=== PATIENT | female | born 1975 | race Caucasian/White ===

== ENCOUNTER 2017-05-30 15:39 | Emergency (ER) | payer OTHER ==
[~2017-05-30] VITALS: Ht 160 cm; Wt 88.5 kg
[~2017-05-30 15:39] MED LIST: ALIS150T; Acular3 ML LEFTEYE; Benadryl 50 mg50 MG PO; DIAZ10 PO; HCTZ; LABE100; LEVSOD125; MORP15ER PO; Prinivil10 MG PO
[2017-05-30 16:20] LABS: Calcium, Ionized (POC) 1.21 mmol/L (1.10-1.46); Chloride (POC) 103 mmol/L (98-108); Creatinine (POC) 0.7 mg/dL (0.6-1.0); Glucose (ISTAT POC) 110 mg/dL (70-99); Hemoglobin (POC) 13.9 g/dL (12.0-16.0); Potassium (POC) 3.8 mmol/L (3.5-5.5); Sodium (POC) 141 mmol/L (135-148); Total CO2 (POC) 27 mmol/L (21-32)
[2017-05-30] MEDS ORDERED: CYCL10 PO (16:56)
== END 2017-05-30 17:15 | disposition home or self-care (01) ==
LOC: ER 15:39
PROVIDERS: Psychiatry & Neurology Psychiatry
DX: R07.81 Pleurodynia (principal); R10.12 Left upper quadrant pain; Z88.0 Allergy status to penicillin; Z88.8 Allergy status to other drugs, medicaments and biological substances; Z88.2 Allergy status to sulfonamides; Z88.1 Allergy status to other antibiotic agents; Z79.899 Other long term (current) drug therapy; Z79.891 Long term (current) use of opiate analgesic; I10 Essential (primary) hypertension; V43.52XA Car driver injured in collision with other type car in traffic accident, initial encounter; E03.9 Hypothyroidism, unspecified
CPT/HCPCS: 36415; 71046; 74177; 80047; 85014; 99284; J7030; Q9967

== ENCOUNTER 2019-10-04 12:54 | Emergency (ER) | payer OTHER ==
[~2019-10-04] VITALS: Ht 160 cm; Wt 86.2 kg
[~2019-10-04 12:54] MED LIST changes: +CYCL10 PO; +EUTHYROX125 MCG PO; -LEVSOD125
[2019-10-04] MEDS ORDERED: OXYC10ER PO (13:13)
[2019-10-04 13:24] LABS: BASOPHILS ABSOLUTE AUTO 0.04 K/mm3 (0.00-0.23); BASOPHILS PERCENT AUTO 0 % (0-2); EOSINOPHILS ABSOLUTE AUTO 0.13 K/mm3 (0.00-0.68); EOSINOPHILS PERCENT AUTO 1 % (0-6); Hematocrit 43.8 % (33.0-51.0); Hemoglobin 14.7 g/dL (11.5-16.0); IMMATURE GRAN ABSOLUTE AUTO 0.03 K/mm3 (0.00-0.10); IMMATURE GRAN PERCENT AUTO 0 % (0-1); LYMPHOCYTES ABSOLUTE AUTO 1.26 K/mm3 (0.84-5.20); LYMPHOCYTES PERCENT AUTO 14 % (21-46); MONOCYTES ABSOLUTE AUTO 0.62 K/mm3 (0.16-1.47); MONOCYTES PERCENT AUTO 7 % (4-13); Mean Corpuscular HGB 27.7 pg (26.0-34.0); Mean Corpuscular HGB Conc 33.6 g/dL (31.5-36.5); Mean Corpuscular Volume 83 fL (80-100); Mean Platelet Volume 10.4 fL (9.1-12.4); NEUTROPHILS ABSOLUTE AUTO 7.07 K/mm3 (1.96-9.15); NEUTROPHILS PERCENT AUTO 77 % (41-73); Platelet Count 335 K/mm3 (150-400); RDW Coefficient Variation 12.7 % (11.7-14.2); RDW Standard Deviation 38.1 fL (35.1-46.3); White Blood Cell Count 9.15 K/mm3 (4.00-11.30)
[2019-10-04 13:47] LABS: Albumin, Blood 4.3 g/dL (3.4-5.0); Albumin/Globulin Ratio 1.1 (0.8-1.8); Bilirubin, Total 0.8 mg/dL (0.1-1.0); Bun/Creatinine Ratio 21.7 (12.0-20.0); Calcium, Blood 9.1 mg/dL (8.5-10.1); Creatinine, Blood 1.06 mg/dL (0.40-1.00); Globulin, Blood 3.9 g/dL (2.2-4.0); Potassium, Blood 3.3 mmol/L (3.5-5.5); Total Protein, Blood 8.2 g/dL (6.4-8.2); Troponin I 0.03 ng/mL (0.000-0.040)
[2019-10-04 13:48] LABS: Base Excess Venous 2.6 mmol/L; Bicarbonate Venous 27.4 mmol/L (24.0-30.0); PCO2 Venous 28.1 mmHg (38-42); PO2 Venous 49.7 mmHg (38-42); pH Blood Venous 7.55 (7.34-7.37)
[2019-10-04 16:34] LABS: U Amphetamine Screen Not Detected; U Barbituate Screen Not Detected; U Benzodiazapine Screen Not Detected; U Buprenorphine Screen Not Detected; U Cannabinoids Screen Not Detected; U Cocaine Screen Not Detected; U Methadone Screen Not Detected; U Methamphetamine Screen DETECTED; U Opiates Screen DETECTED; U Oxycodone Screen DETECTED; U Phencyclidine Screen Not Detected; U Propoxyphene Screen Not Detected
[2019-10-04] MEDS ORDERED: Hydrochlorothia25 MG PO (17:53)
[2019-10-04] MEDS ORDERED: Vistaril25 MG PO (17:53)
[2019-10-08] MEDS ORDERED: PERCOCET 10-321 EAC1 PO (12:12)
[2019-10-08] MEDS ORDERED: TYLENOL SINUS (19:32)
[2019-10-13] MEDS ORDERED: ACET325 PO (10:19)
[2019-10-13] MEDS ORDERED: AMLO5 PO (10:22)
[2019-10-13] MEDS ORDERED: ASPI81CH PO (10:23)
[2019-10-13] MEDS ORDERED: CARV25 (10:24)
[2019-10-13] MEDS ORDERED: CLON.1 (10:33)
[2019-10-13] MEDS ORDERED: FURO20 PO (10:33)
[2019-10-13] MEDS ORDERED: LOSA50 PO (10:35)
== END 2019-10-04 23:39 | disposition home or self-care (01) ==
LOC: ER 12:54
PROVIDERS: Emergency Medicine
DX: R06.00 Dyspnea, unspecified (principal); I10 Essential (primary) hypertension; R79.89 Other specified abnormal findings of blood chemistry; Z88.0 Allergy status to penicillin; Z88.2 Allergy status to sulfonamides; Z88.1 Allergy status to other antibiotic agents; Z79.899 Other long term (current) drug therapy; J45.909 Unspecified asthma, uncomplicated; E03.9 Hypothyroidism, unspecified
CPT/HCPCS: 36415; 71045; 71260; 80053; 82803; 83880; 84484; 85025; 93005; 93010; 96374; 96375; 96376; 99285-25; J0360; J1940; J2060; Q9967

== ENCOUNTER → 2019-11-21 | Outpatient (CLI) | payer OTHER ==
[~2019-11-21] MED LIST changes: +ACET325 PO; +AMLO5 PO; +ASPI81CH PO; +CARV25; +CLON.1; +FURO20 PO; +Hydrochlorothia25 MG PO; +LOSA50 PO; +OXYC10ER PO; +PERCOCET 10-321 EAC1 PO; +TYLENOL SINUS; +Vistaril25 MG PO
[2019-11-22 08:08] LABS: COMPLEMENT C3, SERUM 141 mg/dL (82-167); COMPLEMENT C4, SERUM 22 mg/dL (14-44)
[2019-11-23 15:09] LABS: RNP ANTIBODIES 0.4 AI (0.0-0.9)
[2019-11-25 07:09] LABS: DRVVT 70.7 sec (0.0-47.0); DRVVT CONFIRM 1.8 ratio (0.8-1.2); HEXAGONAL PHASE PHOSPHOLIPID 35 sec (0-11); LUPUS REFLEX INTERPRETATION Comment: (.); PT 10.2 sec (9.6-11.5); PT 1:1NP 10.3 sec (9.6-11.5); PTT-LA 67.1 sec (0.0-51.9); PTT-LA MIX 65.9 sec (0.0-48.9); THROMBIN TIME 17.2 sec (0.0-23.0)
== END | disposition home or self-care (01) ==
LOC: LAB 10:30 → LAB SHORT 10:30
PROVIDERS: Student in an Organized Health Care Education/Training Program
DX: M32.9 Systemic lupus erythematosus, unspecified (principal)
CPT/HCPCS: 36415; 85610; 85611; 85613; 85651; 85670; 85732; 86140; 86146; 86147; 86160; 86162; 86225; 86235; 86762

== ENCOUNTER 2020-03-28 06:13 | Day surgery (SDC) | payer OTHER ==
[~2020-03-28] VITALS: Ht 160 cm; Wt 102.7 kg
[~2020-03-28 06:13] MED LIST changes: +NARCAN4 M1
--- NOTE | 2020-03-28 08:04 | NUR ---
03/28/20 0804 Esteban Moreno MARGAUX AREA & THIGHS PREPPED BY KNM WITH BETADINE GEL. ABDOMINAL AREA PREPPED BY TLG WITH DURAPREP. BUPIVACAINE 0.5% 30MLS MIXED WITH 0.15MLS EPI TO MAKE A CONCENTRATION OF BUPIVACAINE 0.5% 1:200,[address] BUSCH PER ORDER.
--- NOTE | 2020-03-28 10:01 | NUR ---
03/28/20 1001 Betty Roberts PT MEDICATED FOR PAIN PER ORDERS. PT STATES PAIN IS TOLERABLE AT THIS TIME. AFTER REVIEWING DC INSTRUCTIONS, ABDOMINAL DRESSING EXHIBITED APPRIXIMATELY 3X2 INCH RED BLOOD THROUGH PTS GOWN. DR BUSCH AWARE AND PRESSURE DRESSING APPLIED PER INSTRUCTIONS. NO FURTHER OOZING. OK TO DC PER DR BUSCH.
== END 2020-03-28 10:53 | disposition home or self-care (01) ==
LOC: ORSCSDS 06:13
PROVIDERS: Obstetrics & Gynecology
PROC: 0UJD4ZZ Inspection of Uterus and Cervix, Percutaneous Endoscopic Approach (ICD-10-PCS; principal; 2020-03-28 07:30)
DX: N83.209 Unspecified ovarian cyst, unspecified side (principal); K66.0 Peritoneal adhesions (postprocedural) (postinfection); E03.9 Hypothyroidism, unspecified; I10 Essential (primary) hypertension; J45.909 Unspecified asthma, uncomplicated; E66.01 Morbid (severe) obesity due to excess calories; Z68.41 Body mass index [BMI] 40.0-44.9, adult; Z79.899 Other long term (current) drug therapy
CPT/HCPCS: A9270; J0171; J1100; J1885; J2370; J2405; J2704; J2765; J3010; J7120

== ENCOUNTER → 2020-04-11 | Outpatient (CLI) | payer OTHER ==
[~2020-04-11] MED LIST changes: +Aspir 8181 MG PO; +CALC.25 PO; +ERGO400 PO; +HYDR10 PO; +LASIX20 M2 PO; +LEVSOD100 PO; +LEVSOD112; +POTA8 PO
== END | disposition home or self-care (01) ==
LOC: LAB SHORT 16:16
DX: T81.49XA Infection following a procedure, other surgical site, initial encounter (principal)
CPT/HCPCS: 87070; 87077; 87147; 87186; 87205

== ENCOUNTER 2020-09-15 06:34 | Day surgery (SDC) | payer OTHER ==
[~2020-09-15] VITALS: Ht 157.5 cm; Wt 150.0 kg
[~2020-09-15 06:34] MED LIST changes: -LEVSOD112
[2020-09-15] MEDS ORDERED: LEVSOD112 (07:03)
--- NOTE | 2020-09-15 07:15 | NUR ---
09/15/20 0715 CORAL LANDAVERDE ONE ATTEMPT IN RH VALVE SECOND SUCCESSFUL IN RAC PT TOW
--- NOTE | 2020-09-15 08:44 | NUR ---
09/15/20 0844 Marquita Issa (Tarah POOR PREP; UNABLE TO REACH CECUM AFTER 40 MINS, REACHED APPROX TRANSVERSE COLON PRIOR TO DESCENT.
== END 2020-09-15 09:14 | disposition home or self-care (01) ==
LOC: ORSCSDS 06:34
PROVIDERS: Surgery
PROC: 0DJD8ZZ Inspection of Lower Intestinal Tract, Via Natural or Artificial Opening Endoscopic (ICD-10-PCS; principal; 2020-09-15 08:00)
DX: R19.4 Change in bowel habit (principal); R10.30 Lower abdominal pain, unspecified; E03.9 Hypothyroidism, unspecified; I12.9 Hypertensive chronic kidney disease with stage 1 through stage 4 chronic kidney disease, or unspecified chronic kidney disease; N18.30 Chronic kidney disease, stage 3 unspecified; Z79.899 Other long term (current) drug therapy
CPT/HCPCS: J0461; J2405; J2704; J7120

== ENCOUNTER 2021-01-09 07:38 | Day surgery (SDC) | payer OTHER ==
[~2021-01-09] VITALS: Ht 157.5 cm; Wt 104.7 kg
[~2021-01-09 07:38] MED LIST changes: +Catapres-Tts 11 EACH; +LEVSOD112
--- NOTE | 2021-01-09 10:40 | NUR ---
01/09/21 [email or web address] Tabitha Dupree PATIENT VOIDED AT ~ 0913.
--- NOTE | 2021-01-09 12:50 | NUR ---
01/09/21 1250 SHENA MASTERS PLACED ON 10 L O2 NON-REBREATHER IN ADMIT PACU. TRIAL 5L O2 NOW
--- NOTE | 2021-01-09 13:46 | NUR ---
01/09/21 1346 SHENA MASTERS PAIN 08/08
== END 2021-01-09 14:10 | disposition home or self-care (01) ==
LOC: ORSCSDS 07:38
PROVIDERS: Otolaryngology
PROC: 0GBJ0ZZ Excision of Thyroid Gland Isthmus, Open Approach (ICD-10-PCS; principal; 2021-01-09 09:00)
PROC: 0GTK0ZZ Resection of Thyroid Gland, Open Approach (ICD-10-PCS; principal; 2021-01-09 09:00)
DX: E06.3 Autoimmune thyroiditis (principal); E04.2 Nontoxic multinodular goiter; R13.14 Dysphagia, pharyngoesophageal phase; I10 Essential (primary) hypertension; I50.9 Heart failure, unspecified; J45.909 Unspecified asthma, uncomplicated; E66.01 Morbid (severe) obesity due to excess calories; Z68.41 Body mass index [BMI] 40.0-44.9, adult; Z79.899 Other long term (current) drug therapy
CPT/HCPCS: 88307; A9270; J1100; J2250; J2370; J2405; J2704; J2765; J3010